=== PATIENT | male | born 1950 | race Caucasian/White ===

== ENCOUNTER → 2020-12-28 | Outpatient (CLI) | payer MEDICARE, OTHER ==
[2020-12-28 11:51] LABS: HEMOGLOBIN 14.3 gm/dl (14.0-17.5); RED BLOOD COUNT 4.88 M/UL (4.20-5.50)
[2020-12-28 12:15] LABS: BUN/CREATININE RATIO 20 (0-10)
[2020-12-29 14:14] LABS: RHEUMATOID ARTHRITIS FACTOR <10.0 IU/mL (0.0-13.9)
[2020-12-30 00:09] LABS: CCP ANTIBODIES IGG/IGA 6 units (0-19)
== END ==
LOC: LAB 10:11
PROVIDERS: Internal Medicine
DX: D61.818 Other pancytopenia (principal); M25.50 Pain in unspecified joint; R76.8 Other specified abnormal immunological findings in serum; D72.819 Decreased white blood cell count, unspecified
CPT/HCPCS: 36415; 73130; 80053; 83520; 85025; 85652; 86140; 86200; 86431